=== PATIENT | female | born 1960 | race Caucasian/White ===

== ENCOUNTER 2019-03-31 07:43 | Inpatient (IN) ==
[2019-03-31] MEDS ORDERED: NOREPINEPHRINE 4 MG/4 ML VIAL IV ONE (08:00)
[2019-03-31] MEDS: NOREPINEPHRINE 8 MG in SODIUM CHLORIDE 0.9% 242 ML IV PRN ×2 (08:12→21:32)
[2019-03-31] MEDS ORDERED: SODIUM CHLORIDE 0.9% 2,000 ML IV STA (08:13)
[2019-03-31 08:40] LABS: Basophils % 0.3 % (0.0-0.8); Eosinophils % 0.2 % (0.00-10.9); Hematocrit 36.2 VOL% (35.7-47.0); Hemoglobin 11.1 GM/DL (12.0-16.0); Immature Granulocytes % 0.5 %; Immature Granulocytes Absolute 0.07 #; Lymphocytes # 1.7 10*3/uL (1.4-4.0); Lymphocytes % 12.1 % (21.3-54.2); Mean Corpuscular HGB Conc 30.7 GM/DL (32-36); Mean Platelet Volume 11.2 FL (9.6-12.0); Monocytes % 5.4 % (1.7-12.7); Neutrophils % 81.5 % (38.7-73.9); Platelet Count 177 T/CUMM (130-400); Red Blood Count 3.81 MC/CUMM (3.8-5.5); Red Cell Distribution Width 14.4 % (9.3-17.3); White Blood Count 13.9 T/CUMM (4-12)
[2019-03-31 08:51] LABS: Calcium 7.8 MG/DL (8.5-10.1); Osmolality,Calculated 288.7 MOS/KG (273-304)
[2019-03-31 09:37] LABS: Amorphous Crystals,Urine Occasional /HPF (Few); Apearance,Urine CLOUDY (Clear); Bacteria,Urine Few /HPF (Few); Bilirubin,Urine Negative (Negative); Blood, Urine Moderate mg/dL (Negative); Glucose,Urine (UA) Negative (Negative); Hyaline Casts,Urine 29 /LPF (0-3); Ketones,Urine Negative (Negative); Mucus,Urine Occasional /LPF (Occasional); Nitrite,Urine Negative (Negative); Protein,Urine 30 MG/DL; RBC,Urine 2 /HPF (0-4); Squamous Epithelial Cell,Urine Occasional /HPF (0-10); Urine Color Yellow (Yellow); Urine Specific Gravity 1.009 (1.001-1.035); Urine Urobilinogen < 2.0 EU/DL (0.2-1.0); WBC,Urine 64 /HPF (0-6)
[2019-03-31] MEDS ORDERED: guaiFENesin/DM ER 600-30 MG TABLET PO PRN (10:47)
[2019-03-31] MEDS ORDERED: ONDANSETRON 4 MG/2 ML VIAL IV PRN (10:47)
[2019-03-31] MEDS ORDERED: PROMETHAZINE 25 MG TABLET PO PRN (10:47)
[2019-03-31] MEDS: SODIUM CHLOR 0.9% KCL 20 MEQ 20 MEQ/1,000 ML BAG IV SCH ×2 (12:00→20:00)
[2019-03-31] MEDS: cefTRIAXone 1,000 MG in SYRINGE 1 EACH IV SCH (12:01)
[2019-03-31] MEDS: ALBUTEROL/IPRATROPIUM 3 ML NEB RESP TX SCH ×2 (12:43→19:31)
[2019-03-31] MEDS: THEOPHYLLINE ER 300 MG TABLET PO SCH ×2 (14:42→20:19)
[2019-03-31] MEDS: GABAPENTIN 400 MG CAPSULE PO SCH ×2 (14:42→20:19)
[2019-03-31] MEDS: NICOTINE 21 MG/24 HR PATCH TRANSDERM PRN (14:42)
[2019-03-31] MEDS: MONTELUKAST 10 MG TABLET PO SCH (20:19)
[2019-03-31] MEDS: SIMVASTATIN 20 MG TABLET PO SCH (20:19)
[2019-03-31] MEDS: DULoxetine 30 MG CAPSULE PO SCH (20:19)
[2019-03-31] MEDS: rOPINIRole 1 MG TABLET PO SCH (20:19)
[2019-03-31] MEDS: BUDESONIDE/FORMOTEROL 160-4.5 INHALER 6 GM INH SCH (20:21)
[2019-03-31] MEDS: ACETAMINOPHEN 325 MG TABLET PO PRN (21:30)
[2019-04-01] MEDS: ALBUTEROL/IPRATROPIUM 3 ML NEB RESP TX SCH ×4 (01:42→20:02)
[2019-04-01] MEDS: SODIUM CHLOR 0.9% KCL 20 MEQ 20 MEQ/1,000 ML BAG IV SCH (03:28)
[2019-04-01 03:38] LABS: Basophils % 0.1 % (0.0-0.8); Eosinophils % 0.2 % (0.00-10.9); Hematocrit 36.6 VOL% (35.7-47.0); Hemoglobin 11.3 GM/DL (12.0-16.0); Immature Granulocytes % 0.7 %; Immature Granulocytes Absolute 0.09 #; Lymphocytes # 2.5 10*3/uL (1.4-4.0); Lymphocytes % 18.2 % (21.3-54.2); Mean Corpuscular HGB Conc 30.9 GM/DL (32-36); Mean Corpuscular Volume 94.3 FL (87-102); Mean Platelet Volume 11.2 FL (9.6-12.0); Monocytes % 6.7 % (1.7-12.7); Neutrophils % 74.1 % (38.7-73.9); Platelet Count 217 T/CUMM (130-400); Red Blood Count 3.88 MC/CUMM (3.8-5.5); Red Cell Distribution Width 14.6 % (9.3-17.3); White Blood Count 13.8 T/CUMM (4-12)
[2019-04-01 04:06] LABS: Albumin 2.7 G/DL (3.4-5.0); Bilirubin,Total 0.7 MG/DL (0.2-1.0); Calcium 8.9 MG/DL (8.5-10.1); Osmolality,Calculated 298.4 MOS/KG (273-304); Total Protein 6.9 G/DL (6.4-8.3)
[2019-04-01] MEDS: NOREPINEPHRINE 8 MG in SODIUM CHLORIDE 0.9% 242 ML IV PRN (04:49)
[2019-04-01] MEDS: DULoxetine 30 MG CAPSULE PO SCH ×2 (08:06→21:08)
[2019-04-01] MEDS: MULTIVITAMIN (CENTRUM) TABLET PO SCH (08:06)
[2019-04-01] MEDS: GABAPENTIN 400 MG CAPSULE PO SCH ×3 (08:06→21:09)
[2019-04-01] MEDS: BUDESONIDE/FORMOTEROL 160-4.5 INHALER 6 GM INH SCH ×2 (08:06→21:09)
[2019-04-01] MEDS: PANTOPRAZOLE 40 MG TABLET PO SCH (08:06)
[2019-04-01] MEDS: THEOPHYLLINE ER 300 MG TABLET PO SCH ×3 (08:06→21:09)
[2019-04-01] MEDS: ENOXAPARIN 40 MG/0.4 ML SYRINGE SUBCUT SCH (09:07)
[2019-04-01] MEDS: cefTRIAXone 1,000 MG in SYRINGE 1 EACH IV SCH (10:00)
[2019-04-01] MEDS: rOPINIRole 1 MG TABLET PO SCH (21:08)
[2019-04-01] MEDS: SIMVASTATIN 20 MG TABLET PO SCH (21:09)
[2019-04-01] MEDS: MONTELUKAST 10 MG TABLET PO SCH (21:09)
[2019-04-01] MEDS: NICOTINE 21 MG/24 HR PATCH TRANSDERM PRN (21:21)
[2019-04-02] MEDS: ACETAMINOPHEN 325 MG TABLET PO PRN (00:42)
[2019-04-02] MEDS: ALBUTEROL/IPRATROPIUM 3 ML NEB RESP TX SCH ×3 (00:58→12:40)
[2019-04-02 04:37] LABS: Basophils % 0.1 % (0.0-0.8); Eosinophils # 0.1 10*3/uL (0.0-0.87); Eosinophils % 1.1 % (0.00-10.9); Hematocrit 31.6 VOL% (35.7-47.0); Hemoglobin 9.9 GM/DL (12.0-16.0); Immature Granulocytes % 0.5 %; Immature Granulocytes Absolute 0.04 #; Lymphocytes % 25.7 % (21.3-54.2); Mean Corpuscular HGB Conc 31.3 GM/DL (32-36); Mean Corpuscular Volume 92.7 FL (87-102); Monocytes % 6.2 % (1.7-12.7); Neutrophils % 66.4 % (38.7-73.9); Platelet Count 145 T/CUMM (130-400); Red Blood Count 3.41 MC/CUMM (3.8-5.5); Red Cell Distribution Width 14.5 % (9.3-17.3); White Blood Count 7.9 T/CUMM (4-12)
[2019-04-02 05:04] LABS: Calcium 8.8 MG/DL (8.5-10.1)
[2019-04-02] MEDS: DULoxetine 30 MG CAPSULE PO SCH (08:48)
[2019-04-02] MEDS: ENOXAPARIN 40 MG/0.4 ML SYRINGE SUBCUT SCH (08:49)
[2019-04-02] MEDS: PANTOPRAZOLE 40 MG TABLET PO SCH (08:49)
[2019-04-02] MEDS: GABAPENTIN 400 MG CAPSULE PO SCH (08:49)
[2019-04-02] MEDS: MULTIVITAMIN (CENTRUM) TABLET PO SCH (08:49)
[2019-04-02] MEDS: THEOPHYLLINE ER 300 MG TABLET PO SCH (08:49)
[2019-04-02] MEDS: BUDESONIDE/FORMOTEROL 160-4.5 INHALER 6 GM INH SCH (08:52)
[2019-04-02] MEDS: cefTRIAXone 1,000 MG in SYRINGE 1 EACH IV SCH (10:25)
[2019-04-02 11:47] VITALS: BP 99/63
== END 2019-04-02 15:35 | disposition home or self-care (01) | DRG 422 ==
LOC: EDUNIT# → EDBD → N.ED 07:43 → SUATTDRO 10:47 → N.EDINP 10:47 → N.ICU 11:00 → N.2E 04-01 16:49
PROVIDERS: ADMIT Phlebology; ATTEND Internal Medicine